=== PATIENT | male | born 1970 | race Caucasian/White ===

== ENCOUNTER 2016-08-06 08:41 | Emergency (ER) | payer OTHER ==
[~2016-08-06] VITALS: Ht 190.5 cm; Wt 144.0 kg
[2016-08-06] MEDS ORDERED: OMEPRAZOLE40 M1 PO ×2 (09:40→13:33)
[2016-08-06] MEDS ORDERED: ERGOCALCIF50000 UNIT PO (09:42)
[2016-08-06] MEDS ORDERED: LISINOPRIL20 MG PO (09:44)
[2016-08-06] MEDS ORDERED: ATORVASTATIN CA80 MG PO (09:44)
[2016-08-06] MEDS ORDERED: KEPPRA500 MG PO (09:44)
[2016-08-06 10:05] LABS: HEMATOCRIT 46.2 % (38.0-50.0); MCH 35.4 PG (29.0-34.0); MCHC 35.7 G/DL (30.0-36.0); MCV 99.1 FL (86-99); MEAN PLAT.VOLUME 9.8 uM^3 (9.0-12.4); PLATELET COUNT 191 K/uL (156-360); RBC DIS.WIDTH-SD 47.8 % (39-53); RED BLOOD COUNT 4.66 M/uL (4.00-5.50); WHITE BLOOD COUNT 6.5 K/uL (4.1-10.2)
[2016-08-06 10:14] LABS: CHLORIDE 102 mEq/L (99-109); POTASSIUM 3.9 mEq/L (3.7-5.4); SODIUM 135 mEq/L (136-147)
[2016-08-06 10:16] LABS: GLUCOSE 121 mg/dL (70-99)
[2016-08-06 10:18] LABS: ANION GAP 11 MEQ/L (2-14); TOTAL BILIRUBIN 1.8 mg/dL (0.0-1.0)
[2016-08-06 10:20] LABS: ALKALINE PHOSPHATASE 108 IU/L (3-129); GFR ESTIMATE (CALCULATED) > 59 mL/min/
[2016-08-06 10:21] LABS: UREA NITROGEN (BUN) 4 mg/dL (9-23)
[2016-08-06 10:24] LABS: LIPASE 84 U/L (1.0-51.0)
[2016-08-06 10:26] LABS: TROP-I INTERPRETATION NEGATIVE; TROPONIN-I < 0.01 ng/mL (0.0-0.30)
[2016-08-06 14:32] LABS: TROP-I INTERPRETATION NEGATIVE; TROPONIN-I < 0.01 ng/mL (0.0-0.30)
[2016-08-06] MEDS ORDERED: LIBRIUM25 MG PO (14:46)
[2016-08-06 15:30] VITALS: BP 147/113
[2016-08-07] MEDS ORDERED: NORCO 5/3251 TABLET PO (01:22)
[2016-08-07] MEDS ORDERED: ZOFRAN8 MG PO (01:22)
== END 2016-08-06 15:30 | disposition home or self-care (01) ==
LOC: EME 08:41
PROVIDERS: Emergency Medicine
DX: R10.13 Epigastric pain (principal); R74.8 Abnormal levels of other serum enzymes; F10.20 Alcohol dependence, uncomplicated; R07.9 Chest pain, unspecified; I48.91 Unspecified atrial fibrillation; I10 Essential (primary) hypertension; E78.00 Pure hypercholesterolemia, unspecified; K76.0 Fatty (change of) liver, not elsewhere classified; K21.9 Gastro-esophageal reflux disease without esophagitis; Z86.73 Personal history of transient ischemic attack (TIA), and cerebral infarction without residual deficits; Z79.82 Long term (current) use of aspirin; F17.200 Nicotine dependence, unspecified, uncomplicated
CPT/HCPCS: 71020; 74020; 76705; 80053; 83690; 84484; 85027; 93005; 99281; 99285; J2270; J7030

== ENCOUNTER 2016-08-06 21:39 | Emergency (ER) | payer OTHER ==
[~2016-08-06] VITALS: Ht 190.5 cm; Wt 145.8 kg
[~2016-08-06 21:39] MED LIST: ATORVASTATIN CA80 MG PO; ERGOCALCIF50000 UNIT PO; KEPPRA500 MG PO; LIBRIUM25 MG PO; LISINOPRIL20 MG PO; OMEPRAZOLE40 M1 PO
[2016-08-06 23:51] LABS: HEMATOCRIT 42.7 % (38.0-50.0); MCH 35.4 PG (29.0-34.0); MCHC 35.4 G/DL (30.0-36.0); MCV 100.2 FL (86-99); MEAN PLAT.VOLUME 9.8 uM^3 (9.0-12.4); PLATELET COUNT 151 K/uL (156-360); RBC DIS.WIDTH-SD 48.1 % (39-53); RED BLOOD COUNT 4.26 M/uL (4.00-5.50); WHITE BLOOD COUNT 5.2 K/uL (4.1-10.2)
[2016-08-07 00:04] LABS: CHLORIDE 104 mEq/L (99-109); POTASSIUM 3.6 mEq/L (3.7-5.4); SODIUM 137 mEq/L (136-147)
[2016-08-07 00:06] LABS: GLUCOSE 122 mg/dL (70-99)
[2016-08-07 00:07] LABS: ANION GAP 9 MEQ/L (2-14)
[2016-08-07 00:08] LABS: TOTAL BILIRUBIN 1.9 mg/dL (0.0-1.0)
[2016-08-07 00:10] LABS: ALKALINE PHOSPHATASE 98 IU/L (3-129); GFR ESTIMATE (CALCULATED) > 59 mL/min/
[2016-08-07 00:11] LABS: UREA NITROGEN (BUN) 6 mg/dL (9-23)
[2016-08-07 00:13] LABS: LIPASE 72 U/L (1.0-51.0)
[2016-08-07] MEDS ORDERED: ZOFRAN8 MG PO (01:22)
[2016-08-07] MEDS ORDERED: NORCO 5/3251 TABLET PO (01:22)
[2016-08-07 02:09] VITALS: BP 127/92
== END 2016-08-07 02:09 | disposition home or self-care (01) ==
LOC: EME 21:39
PROVIDERS: Emergency Medicine
DX: K85.90 Acute pancreatitis without necrosis or infection, unspecified (principal); R74.8 Abnormal levels of other serum enzymes; I10 Essential (primary) hypertension; Z86.73 Personal history of transient ischemic attack (TIA), and cerebral infarction without residual deficits; F17.200 Nicotine dependence, unspecified, uncomplicated; F10.21 Alcohol dependence, in remission
CPT/HCPCS: 74177; 80053; 83605; 83690; 85027; 99281; 99284; J2270; J2765; J7030

== ENCOUNTER 2016-12-03 12:45 | Emergency (ER) | payer OTHER ==
[~2016-12-03] VITALS: Ht 190.5 cm; Wt 142.9 kg
[~2016-12-03 12:45] MED LIST changes: +NORCO 5/3251 TABLET PO; +ZOFRAN8 MG PO
[2016-12-03 13:19] LABS: HEMATOCRIT 45.9 % (38.0-50.0); MCH 35.5 PG (29.0-34.0); MCHC 36.4 G/DL (30.0-36.0); MCV 97.7 FL (86-99); MEAN PLAT.VOLUME 9.4 uM^3 (9.0-12.4); PLATELET COUNT 166 K/uL (156-360); RBC DIS.WIDTH-CV 13.9 % (11.8-14.6); WHITE BLOOD COUNT 3.9 K/uL (4.1-10.2)
[2016-12-03 13:29] LABS: CHLORIDE 102 mEq/L (99-109); POTASSIUM 3.6 mEq/L (3.7-5.4); SODIUM 138 mEq/L (136-147)
[2016-12-03 13:31] LABS: GLUCOSE 111 mg/dL (70-99)
[2016-12-03 13:32] LABS: ANION GAP 17 MEQ/L (2-14)
[2016-12-03 13:35] LABS: GFR ESTIMATE (CALCULATED) > 59 mL/min/
[2016-12-03 13:36] LABS: UREA NITROGEN (BUN) 7 mg/dL (9-23)
[2016-12-03 16:15] LABS: TOTAL BILIRUBIN 2.2 mg/dL (0.0-1.0)
[2016-12-03 16:16] LABS: ALKALINE PHOSPHATASE 147 IU/L (3-129)
[2016-12-03 16:18] LABS: TROP-I INTERPRETATION NEGATIVE; TROPONIN-I < 0.01 ng/mL (0.0-0.30)
[2016-12-03 16:19] LABS: LIPASE 68 U/L (1.0-51.0)
[2016-12-03 18:17] LABS: TROP-I INTERPRETATION NEGATIVE; TROPONIN-I < 0.01 ng/mL (0.0-0.30)
[2016-12-03] MEDS ORDERED: ZOFRAN ODT4 MG PO (18:55)
[2016-12-03] MEDS ORDERED: LIBRIUM25 MG PO (18:55)
[2016-12-03] MEDS ORDERED: B-1100 MG PO (18:55)
[2016-12-03 19:10] VITALS: BP 130/70
== END 2016-12-03 19:10 | disposition home or self-care (01) ==
LOC: EME 12:45
PROVIDERS: Physician Assistant Medical
DX: K29.70 Gastritis, unspecified, without bleeding (principal); E78.5 Hyperlipidemia, unspecified; I10 Essential (primary) hypertension; I48.91 Unspecified atrial fibrillation; Z86.73 Personal history of transient ischemic attack (TIA), and cerebral infarction without residual deficits; F17.200 Nicotine dependence, unspecified, uncomplicated
CPT/HCPCS: 71020; 74177; 80048; 80076; 83690; 84484; 85027; 93005; 99281; 99285; J3010; J7030